=== PATIENT | female | born 1930 | race Hispanic/Latino ===

== ENCOUNTER 2016-11-26 06:11 | Inpatient (IN) | payer MEDICARE ==
[2016-11-26 06:16] VITALS: BMI 23.9
--- NOTE | 2016-11-26 06:35 | ED PDOC ---
Arrival/HPI - General Chief Complaint: Trauma Time Seen by Provider: 11/26/16 06:15 - History of Present Illness Narrative History of Present Illness (Text): 11/26/16 06:35 Patient presents via ambulance after waking at 4:00 to use the bathroom patient fell to the floor felt her legs were weak more the right than the left unable to get up probably some assistance by family 911 was called patient presents with no weakness no chest pain no shortness of breath history of CVA in the past with similar symptoms no headache fever or chills Past Medical History - Provider Review Nursing Documentation Reviewed: Yes - Infectious Disease Hx of Infectious Diseases: None - Cardiac Hx Hypertension: Yes - Neurological HX Cerebrovascular Accident: Yes (with L sided weakness) - Psychiatric Hx Substance Use: No - Surgical History Hx Cholecystectomy: Yes - Anesthesia Hx Anesthesia: Yes Hx Anesthesia Reactions: No Hx Malignant Hyperthermia: No Family/Social History - Physician Review Nursing Documentation Reviewed: Yes Family/Social History: No Known Family HX Smoking Status: Never Smoked Hx Alcohol Use: No Hx Substance Use: No Allergies/Home Meds Allergies/Adverse Reactions: Allergies No Known Allergies Allergy (Verified 11/26/16 06:16) Home Medications: Home Meds Medication Instructions Recorded Confirmed hydroCHLOROthiazide [Microzide] 12.5 mg PO DAILY 11/26/16 11/26/16 Review of Systems - Review of Systems Constitutional: Normal Eyes: Normal ENT: Normal Respiratory: Normal Cardiovascular: Normal Gastrointestinal: Normal Genitourinary Female: Normal Musculoskeletal: Normal Skin: Normal Neurological: Focal Weakness. absent: Facial Droop Endocrine: Normal Hemo/Lymphatic: Normal Psychiatric: Normal Physical Exam Vital Signs Reviewed: Yes Vital Signs Temp Pulse Resp BP Pulse Ox 11/26/16 16:12 70 19 134/54 L 99 11/26/16 15:04 65 18 127/51 L 98 11/26/16 12:32 97.7 F 83 83 H 129/54 L 11/26/16 10:10 83 17 129/54 L 99 11/26/16 09:48 80 18 126/48 L 97 11/26/16 07:49 75 18 104/57 L 98 11/26/16 07:02 72 18 166/61 H 97 11/26/16 06:12 97.7 F 74 18 154/68 H 96 Temperature: Afebrile Blood Pressure: Normal Pulse: Regular Respiratory Rate: Normal Appearance: Positive for: Well-Appearing, Non-Toxic, Comfortable Pain Distress: None Mental Status: Positive for: Alert and Oriented X 3 - Systems Exam Head: Present: Atraumatic, Normocephalic Pupils: Present: PERRL Extroacular Muscles: Present: EOMI Conjunctiva: Present: Normal Mouth: Present: Moist Mucous Membranes Neck: Present: Normal Range of Motion Respiratory/Chest: Present: Clear to Auscultation, Good Air Exchange. No: Respiratory Distress, Accessory Muscle Use Cardiovascular: Present: Regular Rate and Rhythm, Normal S1, S2. No: Murmurs Abdomen: Present: Normal Bowel Sounds. No: Tenderness, Distention, Peritoneal Signs Back: Present: Normal Inspection Upper Extremity: Present: Normal Inspection. No: Cyanosis, Edema Lower Extremity: Present: Normal Inspection. No: Edema Neurological: Present: GCS=15, CN II-XII Intact, Speech Normal, Motor Func Grossly Intact Skin: Present: Warm, Dry, Normal Color. No: Rashes Psychiatric: Present: Alert, Oriented x 3, Normal Insight, Normal Concentration Medical Decision Making - Lab Interpretations Lab Results: 11/26/16 06:30 11/26/16 06:30 Lab Results 11/26/16 06:40: Blood Type B NEGATIVE, Antibody Screen Negative, BBK History Checked No verified bt 11/26/16 06:33: POC Glucose (mg/dL) 127 H 11/26/16 06:30: WBC 11.6 H, RBC 3.55, Hgb 11.3 L, Hct 34.3 L, MCV 96.6, MCH 31.8 , MCHC 32.9, RDW 13.3, Plt Count 294, MPV 10.2, Gran % 71.4 H, Lymph % (Auto) 22.5, [place] % (Auto) 4.4, Eos % (Auto) 1.5, Baso % (Auto) 0.2, Gran # 8.26 H, Lymph # 2.6, Nelson # 0.5, Eos # 0.2, Baso # 0.02, PT 10.8, INR 1.00, APTT 25.7, Sodium 141, Potassium 3.8, Chloride 101, Carbon Dioxide 27, Anion Gap 17, BUN 28 H, Creatinine 1.0, Est GFR ( Amer) > 60, Est GFR (Non-Af Amer) 52, Random Glucose 114 H, Hemoglobin A1c 6.0, Calcium 9.6, Total Bilirubin 0.7, AST 26, ALT 19, Alkaline Phosphatase 77, Troponin I < 0.01, Total Protein 8.0, Albumin 3.9, Globulin 4.1, Albumin/Globulin Ratio 1.0 L, Triglycerides 145, Cholesterol 156, LDL Cholesterol Direct 73, HDL Cholesterol 43 - RAD Interpretation Radiology Orders: 11/26/16 06:24 HEAD W/O (CODE STROKE) [CT] Stat CHEST PORTABLE [RAD] Stat 11/26/16 10:47 BRAIN WITHOUT CONTRAST [MRI] Routine 11/28/16 17:10 SPINAL CANAL LUMBAR W/O CONT [MRI] Routine - Medication Orders Current Medication Orders: Acetaminophen (Tylenol 325mg Tab) 650 mg PO Q4H PRN PRN Reason: Pain, Mild (1-3) Aspirin (Ecotrin) 81 mg PO DAILY [facility] Last Admin: 11/29/16 09:30 Dose: 81 MG Atorvastatin Calcium (Lipitor) 10 mg PO DIN [facility] Last Admin: 11/29/16 17:35 Dose: 10 MG Discontinued Medications Aspirin (Ecotrin) 325 mg PO STAT STA Stop: 11/26/16 07:02 Last Admin: 11/26/16 07:06 Dose: 325 MG Atorvastatin Calcium (Lipitor) 40 mg PO STAT STA Stop: 11/26/16 07:28 Last Admin: 11/26/16 07:33 Dose: 40 MG - Transfer of Care Patient signed out to Dr:: abbey brewer and zachary NIHSS Scale([place])3 Time Performed: 06:15 - How Severe is the Stoke Baseline Level of Consciousness: 0=Alert LOC to Questions: 0=Both comments correct LOC to commands: 0=Obeys both correctly Best Gaze: 0=Normal Visual: 0=No visual loss Facial: 0=Normal Motor Arm - Left: 0=No drift Motor Arm - Right: 0=No drift Motor Leg - Left: 1=Drift before 5 sec Motor Leg - Right: 0=No drift Limb Ataxia: 0=Absent Sensory: 0=Normal Best Language: 0=No aphasia Dysarthia: 0=Normal articulation Extinction & Inattention (Neglect): 0=Normal, no object Score: 1 Risk Level: Minor Stroke Risk rTPA Inclusion/Exclusion - Refusal of Treatment Patient Refused Treatment: No - Inclusion Criteria for Altepase Patient is 18 years or Older: Yes The Clinical Diagnosis of Ischemic Stroke That is Causing a Potentially Disabling Neurological Deficit: No Time of Onset is Well Established to be Less Than 270 Minute Before Treatment Would Begin: Yes Risk/Benefit Discussed With Patient/Family Member Present: Yes - Exclusion Criteria for Altepase Uncontrolled Hypertension at Time of Treatment (Systolic BP above 185 or Diastolic BP above 110 mmHg): No Active Internal Bleeding: No Known Bleeding Diathesis Including but Not Limited to: Platelets Below 100,000/ mm,PTT Above 40 sec After Heparin Use, Current Use of Oral Anitcoagulant With INR Greater Than 1.7 or PT Greater Than 15 secs: No Evidence of an Intracranial Hemorrhage: No Evidence of Major Acute Infarct With Signs Greater Than 1/3 MCA Territory: No - Warning to TPA With Conditions Following Conditions Weighed Against Anticipated Benefit: Yes Condition: Stroke Serevity Too Mild Disposition/Present on Arrival - Present on Arrival Any Indicators Present on Arrival: No History of DVT/PE: No History of Uncontrolled Diabetes: No Urinary Catheter: No History of Decub. Ulcer: No History Surgical Site Infection Following: None - Disposition Have Diagnosis and Disposition been Completed?: Yes Diagnosis: TIA (transient ischemic attack) Disposition: HOSPITALIZED Disposition Time: 07:00 Patient Problems: Current Active Problems Problem Status Diagnosed TIA (transient ischemic attack) Acute Condition: STABLE
[2016-11-26 06:40] LABS: ADD MANUAL DIFF? NO
--- NOTE | 2016-11-26 06:51 | CT ---
EXAM: CT Head Without Intravenous Contrast. CLINICAL HISTORY: 86 years old, female; Signs and symptoms; Alteration of consciousness; Additional info: Code stroke TECHNIQUE: Axial computed tomography images of the head/brain without intravenous contrast. This CT exam was performed using one or more of the following dose reduction techniques: automated exposure control, adjustment of the mA and/or kV according to patient size, and/or use of iterative reconstruction technique. COMPARISON: No relevant prior studies available. FINDINGS: Brain: Yjzw-ge-pojfibft atrophy. No intracranial hemorrhage. No mass. Few scattered subtle foci of decreased attenuation within periventricular/subcortical white matter. No definite edema. Ventricles: No hydrocephalus. Bones/joints: No acute fracture. Soft tissues: Unremarkable. Vasculature: Minimal atherosclerotic disease of intracranial arteries. Sinuses: No acute sinusitis. Mastoid air cells: No mastoid effusion. Orbits: Unremarkable as visualized. IMPRESSION: 1. Nonspecific white matter changes. Acute infarction may be CT occult within first 24 hours. If a focal deficit persists, consider followup CT or MRI for further evaluation. 2. Incidental/non-acute findings are described above.
[2016-11-26 07:00] LABS: BASO # 0.02 K/mm3 (0.0-2.0); BASO % 0.2 % (0.0-3.0); EOS # 0.2 (0.0-0.7); EOS % 1.5 % (1.5-5.0); GRAN # 8.26 (1.4-6.5); GRAN % 71.4 % (50.0-68.0); HEMATOCRIT 34.3 % (36.0-48.0); LYMPH # 2.6 (1.2-3.4); LYMPH % 22.5 % (22.0-35.0); MEAN CELL VOLUME 96.6 fL (80.0-105.0); MEAN CORPUSCULAR HEMOGLOBIN 31.8 pg (25.0-35.0); MEAN CORPUSCULAR HGB CONC 32.9 g/dl (31.0-37.0); MEAN PLATELET VOLUME 10.2 fl (7.0-11.0); MONO # 0.5 (0.1-0.6); MONO % 4.4 % (1.0-6.0); PLATELET COUNT 294 10^3/uL (120.0-450.0); RED CELL DISTRIBUTION WIDTH 13.3 % (11.5-14.5); WHITE BLOOD COUNT 11.6 10^3/ul (4.5-11.0)
[2016-11-26] MEDS ORDERED: Aspirin 325 mg EC Tablets PO STA (07:01)
[2016-11-26 07:06] LABS: ALKALINE PHOSPHATASE 77 U/L (38-133); ALT/SGPT 19 U/L (7-56); AST/SGOT 26 U/L (15-39); BILIRUBIN,TOTAL 0.7 mg/dL (0.2-1.3); BLOOD UREA NITROGEN 28 mg/dL (7-21); CALCIUM 9.6 mg/dL (8.4-10.5); CARBON DIOXIDE 27 mmol/L (21-33); CHLORIDE 101 mmol/L (98-107); CHOLESTEROL 156 mg/dL (130-200); GFR AFRICAN-AMERICAN > 60; GLUCOSE,RANDOM 114 mg/dL (70-110); POTASSIUM 3.8 mmol/L (3.6-5.0); SODIUM 141 mmol/L (132-148)
[2016-11-26 07:17] LABS: PARTIAL THROMBOPLASTIN TIME 25.7 Seconds (23.7-30.8)
[2016-11-26 07:18] LABS: TROPONIN I < 0.01 ng/mL
--- NOTE | 2016-11-26 07:19 | ED PDOC ---
Physical Exam Vital Signs Reviewed: Yes Vital Signs Temp Pulse Resp BP Pulse Ox 11/26/16 07:49 75 18 104/57 L 98 11/26/16 07:02 72 18 166/61 H 97 11/26/16 06:12 97.7 F 74 18 154/68 H 96 Temperature: Afebrile Blood Pressure: Hypertensive Pulse: Regular Respiratory Rate: Normal Appearance: Positive for: Well-Appearing Pain Distress: None Mental Status: Positive for: Alert and Oriented X 3 Finger Stick Blood Glucose: 127 Medical Decision Making ED Course and Treatment: 11/26/16 07:00 Patient signed out to me by Dr. Lubin pending reassessment and final disposition. 86 year old female presented with generalized weakness. Patient woke up with these symptoms which since resolved. No focal neurological deficits on exam. Patient denies any complaints at this time. 11/26/16 07:[address] Gregor Hess who agrees with remote tele observation. - Lab Interpretations Lab Results: 11/26/16 06:30 11/26/16 06:30 Lab Results 11/26/16 06:40: Blood Type B NEGATIVE, Antibody Screen Negative, BBK History Checked No verified bt 11/26/16 06:30: WBC 11.6 H, RBC 3.55, Hgb 11.3 L, Hct 34.3 L, MCV 96.6, MCH 31.8 , MCHC 32.9, RDW 13.3, Plt Count 294, MPV 10.2, Gran % 71.4 H, Lymph % (Auto) 22.5, [place] % (Auto) 4.4, Eos % (Auto) 1.5, Baso % (Auto) 0.2, Gran # 8.26 H, Lymph # 2.6, [place] # 0.5, Eos # 0.2, Baso # 0.02, PT 10.8, INR 1.00, APTT 25.7, Sodium 141, Potassium 3.8, Chloride 101, Carbon Dioxide 27, Anion Gap 17, BUN 28 H, Creatinine 1.0, Est GFR ( Amer) > 60, Est GFR (Non-Af Amer) 52, Random Glucose 114 H, Calcium 9.6, Total Bilirubin 0.7, AST 26, ALT 19, Alkaline Phosphatase 77, Troponin I < 0.01, Total Protein 8.0, Albumin 3.9, Globulin 4.1, Albumin/Globulin Ratio 1.0 L, Triglycerides 145, Cholesterol 156, LDL Cholesterol Direct 73, HDL Cholesterol 43 - RAD Interpretation Radiology Orders: 11/26/16 06:24 HEAD W/O (CODE STROKE) [CT] Stat CHEST PORTABLE [RAD] Stat - Medication Orders Current Medication Orders: Discontinued Medications Aspirin (Ecotrin) 325 mg PO STAT STA Stop: 11/26/16 07:02 Last Admin: 11/26/16 07:06 Dose: 325 MG Atorvastatin Calcium (Lipitor) 40 mg PO STAT STA Stop: 11/26/16 07:28 Last Admin: 11/26/16 07:33 Dose: 40 MG - Eulaibe Statement The provider has reviewed the documentation as recorded by the Haroldo Monte Provider Eulaibe Attestation: All medical record entries made by the Haroldo were at my direction and personally dictated by me. I have reviewed the chart and agree that the record accurately reflects my personal performance of the history, physical exam, medical decision making, and the department course for this patient. I have also personally directed, reviewed, and agree with the discharge instructions and disposition. Disposition/Present on Arrival - Present on Arrival Any Indicators Present on Arrival: No History of DVT/PE: No History of Uncontrolled Diabetes: No Urinary Catheter: No History of Decub. Ulcer: No History Surgical Site Infection Following: None - Disposition Have Diagnosis and Disposition been Completed?: Yes Diagnosis: TIA (transient ischemic attack) Disposition: HOSPITALIZED Disposition Time: 07:56 Patient Plan: Observation Condition: STABLE
--- NOTE | 2016-11-26 09:53 | RAD ---
HISTORY: cva COMPARISON: No prior. FINDINGS: LUNGS: No active pulmonary disease. PLEURA: No significant pleural effusion identified, no pneumothorax apparent. CARDIOVASCULAR: Normal. OSSEOUS STRUCTURES: No significant abnormalities. VISUALIZED UPPER ABDOMEN: Normal. OTHER FINDINGS: None. IMPRESSION: No active disease.
--- NOTE | 2016-11-26 12:44 | CON ---
DATE: 11/26/2016 CHIEF COMPLAINT: Generalized weakness, with residual left-sided weakness from prior stroke. HISTORY OF PRESENT ILLNESS: This is an 86-year-old woman with past medical history of CVA in the [facility] t with left side weakness on the left lower extremity. She was walking to the bathroom in the [facility] and when she came back from the bathroom she says her legs buckled and she fell to the floor and un able to get up; therefore, came to the hospital for evaluation. She denied any numbness or any pain in the extremities. Denies any headache, any change in sense of vision, taste or smell. No pronator drift seen except for residual weakness on the left side from her stroke. She said that her left lo wer extremity weakness is more weaker than before. She does not take an aspirin at home and she does not take her medications regularly. CT scan showed no acute intracranial abnormality. PAST MEDICAL HISTORY: Hypertension, history of CVA in the past with residual left side weakness, his tory of cholecystectomy. FAMILY HISTORY: Noncontributory. SOCIAL HISTORY: No illicit drug use. No ETOH abuse. ALLERGIES: No known drug allergies. REVIEW OF SYSTEMS: A 14-point review of systems is negative except for the HPI. PHYSICAL EXAMINATION: VITAL SIGNS: Temperature 97.7, pulse rate ____, blood pressure 129/____, respiratory rate of 17, oxy gen saturation 99% on room air. GENERAL: The patient is sitting up in bed in no acute distress. HEENT: Atraumatic, normocephalic. PERRLA. Extraocular muscles intact. NECK: Supple. No JVD. No adenopathy noted. LUNGS: Clear to auscultation. No adventitious sounds. HEART: S1, S2, normal rate and rhythm. No murmurs, rubs, or gallops. ABDOMEN: Soft. Nontender, nondistended. Bowel sounds are present. EXTREMITIES: No clubbing, no cyanosis. Peripheral pulses ____ bilaterally. NEUROLOGIC: The patient is alert, oriented to person, place, month and year. Speech is fluent, with out any errors. Cranial nerves II-XII are intact. MOTOR: Has residual left side weakness from prior CVA, though has 4+/5 in the left lower extremity, right side is 5/5. Toes ____. SENSORY: Light touch ____ at the ankles. COORDINATION: Fwqjio-qi-hyhc intact. ____ LABORATORY DATA: Sodium is 141, potassium ____, carbon dioxide 27, BUN 28, creatinine ____. LDL is 7 3 ____. ASSESSMENT AND PLAN: This is an 86-year-old woman with history of cerebrovascular accident in the [facility] with residual left side weakness, hypertension, ____ after walking back from the bathroom had gene ralized weakness and both legs gave out ____ left lower extremity is a lot weaker than before and no back pain, no radicular symptoms ____ left side weakness from prior cerebrovascular accident and, acc ording to her, the left leg is weaker than before. She does not take aspirin daily. At this time, h er symptoms could be secondary to generalized weakness, secondary to arthritis ____ transient cerebra l hypoperfusion versus an acute infarct. Will Recommend: 1. An MRI of the brain to assess for acute infarct. 2. Will be started on aspirin 81 mg p.o. daily and Lipitor 20 mg p.o. daily ____. 3. Recommend ____ . 4. Monitor electrolytes and recommend for her to hydrate. Continue current present medical manageme nt. Thank you for this consult. Rick Davidson MD cc: [id number] TT: 11/26/2016 11:29:14 Confirmation # [id number] Dictation # [id number] nevin
[2016-11-26] MEDS ORDERED: Influenza Vaccine 45 MCG/0.5 ml IM ONE (12:53)
[2016-11-26] MEDS ORDERED: Pneumococcal 23-Valent Vaccine IM ONE (12:53)
--- NOTE | 2016-11-26 14:24 | MRI ---
PROCEDURE: MRI BRAIN WITHOUT CONTRAST HISTORY: cva COMPARISON: Comparison is made to the previous study dated 04/17/[address] head dated 11/26/2016 TECHNIQUE: Multiplanar, multisequence MR images of the brain were obtained without intravenous contrast enhancement. FINDINGS: HEMORRHAGE: None DWI: No evidence of an acute or early subacute infarction. BRAIN PARENCHYMA: No mass effect or edema. Again seen are few scattered nonspecific small foci of hyperintense T2 and FLAIR signal in the white matter suggestive but nonspecific for chronic microvascular ischemic disease. VENTRICLES: Unremarkable. No hydrocephalus. CRANIUM: Unremarkable. ORBITS: Grossly unremarkable. PARANASAL SINUSES/MASTOIDS: Clear VASCULAR SYSTEM: Skull base flow voids intact. OTHER FINDINGS: None. IMPRESSION: No evidence of acute infarct or acute intracranial pathology. Re- demonstration of small foci of hyperintense FLAIR signal in the white matter suggestive but nonspecific for chronic microvascular ischemic disease.
--- NOTE | 2016-11-26 18:30 | CARD ---
APPROVED REPORT EKG Measurement Heart [id number] <Conclusion> Normal sinus rhythm ST abnormality, possible digitalis effect Abnormal ECG
--- NOTE | 2016-11-27 10:36 | HP ---
CHIEF COMPLAINT: Unable to move legs. HISTORY OF PRESENT ILLNESS: This is an 86-year-old woman who lives at home with a close friend and r oommate. She went to the bathroom early on morning and fell on the floor. She was not able to get. She was not able to move her legs. She describes her legs as having been paralyzed. They were not twisted or caught. She simply could not move them. She had pain. She had some pain in her back, but she was awake, alert and clear. She was able to call for help. She says she was able to speak and talk clearly and move her upper extremities. It was only her lower legs that she could not move. Ambulance was called. She came to the Emergency Room. By that time, she was moving her lowe r extremities. She says her left leg is still very weak. CT scan of the head was done. Neurology w as called and arrangements were made for her to be admitted. 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 She was followed by ne urologists, Drs. Mcclure and Lety, at that time. She was seen recently in the office after a 2-yea r absence and was started on hydrochlorothiazide for mildly noted hypertension. ALLERGIES: None. SOCIAL HISTORY: Tobacco none, alcohol none, coffee 2 cups a day. FAMILY HISTORY: Mother at age 85. Father at age 72 of a myocardial infarction. She is #3 of 4 sibs. She has 3 brothers. One passed during World War II. The other at age 78. The ot her is alive and well. She is single with no children. PHYSICAL EXAMINATION: GENERAL: The patient was seen in room 267, bed 1. She is awake, alert, clear, and in good spirits. She is feeling much better. HEAD AND NECK: Unremarkable. Conjunctivae are pink. Mucous membranes are moist. Neck is supple wi thout masses. HEART: Regular, not tachycardic. ABDOMEN: Soft, nontender. LUNGS: Clear. MENTAL STATUS: She is awake, alert and clear and sharp. NEUROLOGIC: Upper extremity strength is good. There is no weakness. There is no hand weakness. Mcmillan nd grasps are normal. There is no drift. She has normal rotation. Lower extremities: Difficult to evaluate. She is able to articulate both right and left ankle, but there is weakness in the left le g trying to raise her leg up off the bed. Ambulation has not been attempted yet by physical therapy, but the patient feels she would not be able to walk and would be very unsteady at this point. LABORATORY DATA: Review of labs shows H and H to be 11 and 34. White count is slightly elevated at 11.6. Coags are normal. Chemistries are okay except that she is slightly dry with a BUN of 28. Ran dom nonfasting glucose of 114. Cholesterol was quite good at 156 with an HDL of 43. MRI of the brai n was done this morning. The CT scan was essentially unremarkable, but MRI was done showing no evide nce of acute infarct or acute intracranial pathology. Neurology note is appreciated. I may need to speak with the neurologist about the patient's specific symptoms in the lower extremities. I will order an MRI of the lumbar spine to look for a cord lesio n or involvement in the weakness I will need to review the history with the patient again, specifica lly in how she speaks so clearly with her legs being able to move and paralysis. IMPRESSION: 1. Fall at home with patient reported inability to move her legs. Cerebrovascular accident has alre antonio been ruled out. May suspect transient ischemic attack versus lumbar cord lesion or issue. MRI o f the lumbar spine is pending. 2. Status post temporal arteritis 3-4 years ago treated with prolonged course of steroids. 3. Hypertension. PLAN: Admit to med/surg monitored floor. Follow with neurology. MRI as ordered above. Follow bloo d pressure. Try to resume prior medications. Venkata Hess MD cc: [phone] TT: 11/27/2016 10:35:31 [email or web address]
--- NOTE | 2016-11-28 13:12 | MRI ---
PROCEDURE: MR LUMBAR SPINE WITHOUT CONTRAST HISTORY: left leg weakness COMPARISON: 02/19/2015 TECHNIQUE: Multiecho multiplanar sequences were performed through the lumbar spine without the use of intravenous contrast. FINDINGS: Normal lumbar lordosis. Vertebral body heights are preserved. Marrow signal unremarkable. Conus medullaris unremarkable at the level of T12/L1 Paraspinal soft tissues are unremarkable. T12-L1: No disc herniation, spinal canal stenosis or neural foraminal narrowing. L1-2: No disc herniation, spinal canal stenosis or neural foraminal narrowing. L2-3: No disc herniation, spinal canal stenosis or neural foraminal narrowing. L3-4: No disc herniation, spinal canal stenosis or neural foraminal narrowing. L4-5: Disc bulge with facet arthropathy contribute to mild central canal stenosis. L5-S1: Broad-based disc herniation with bilateral inferior foraminal encroachment. Associated disc desiccation. OTHER FINDINGS: None. IMPRESSION: No significant interval change. L4-5: Disc bulge with facet arthropathy contribute to mild central canal stenosis. L5-S1: Broad-based disc herniation with bilateral inferior foraminal encroachment.
--- NOTE | 2016-11-28 18:41 | PN ---
DATE: 11/28/2016 CHIEF COMPLAINT: Follow up for generalized weakness, has residual left-sided weakness from prior CVA . SUBJECTIVE: The patient seen and examined at bedside. MRI of the lumbosacral spine, since she has le ft leg weakness, showed L5 disk bulge and mild central canal stenosis and L5-S1 broad based disk tasneem iation with bilateral inferior foraminal encroachment, but should not be causing that much of left lo wer extremity weakness. MRI of her brain showed no acute intracranial abnormality. She is currently on aspirin and statin for stroke prevention. No acute events overnight. 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 PAST SURGICAL HISTORY: Cholecystectomy. FAMILY HISTORY: Noncontributory. SOCIAL HISTORY: No illicit drug use, smoking, or ETOH abuse. ALLERGIES: No known drug allergies. REVIEW OF SYSTEMS: A 14-point review of systems is negative except for the HPI. PHYSICAL EXAMINATION: VITAL SIGNS: Temperature 98.5, pulse rate 69, blood pressure 142/47, respiratory rate 20, oxygen 98% on room air. GENERAL: The patient is sitting up in bed in no acute distress. HEENT: Atraumatic, normocephalic. PERRLA. Extraocular muscles intact. NECK: Supple, no JVD, no adenopathy noted. LUNGS: Clear to auscultation. No adventitious sounds. HEART: S1, S2, normal rate and rhythm. No murmurs, rubs, or gallops. ABDOMEN: Soft, nontender, nondistended. Bowel sounds are present. EXTREMITIES: No clubbing, no cyanosis. Peripheral pulses 2+ felt bilaterally. NEUROLOGIC: The patient is alert, oriented to person, place, month and year. Speech is fluent, with out any errors. Cranial nerves II through XII are intact. Has poor attention span, slow thought pro cess. MOTOR: Has residual left side weakness from prior CVA, though she has 4+/5 left lower extremity and right side is 5/5 intact. Toes are downgoing bilaterally. SENSORY: Light touch, pinprick, proprioception, vibration is intact. DTRs 2+ throughout. COORDINATION: Lectat-ns-iiyb intact. LABORATORY DATA: Blood sugar is 127. ASSESSMENT AND PLAN: This is an 86-year-old woman with history of cerebrovascular accident in the [facility] with residual left side weakness, hypertension, was not taking any aspirin at home, after walking back from the bathroom, she had generalized weakness and both legs gave out and left lower extremity is a lot weaker than her baseline. She denied any radicular symptoms or any back pain, but her MRI o f the lumbosacral spine showed an L5-S1 broad based disk herniation with bilateral inferior foraminal encroachment, unlikely to be causing that much of left lower extremity weakness, but otherwise overa ll doing well. She was not taking an aspirin prior. Her MRI of the brain showed no acute intracrania l abnormalities. At this time, her generalized weakness could be secondary to transient cerebral hyp operfusion with superimposed underlying deconditioned state and chronic L5-S1 broad based disk hernia tion. At this time, recommend: 1. Aspirin 81 mg, Lipitor 10 mg p.o. daily for stroke prevention. 2. Physical and occupational therapy evaluation. Continue current present medical management. Thank you for this followup. Rick Davidson MD cc: [id number] TT: 11/28/2016 18:40:37 Confirmation # [id number] Dictation # [id number] nevin
[2016-11-30 10:56] LABS: HEMATOCRIT 34.9 % (36.0-48.0); MEAN CELL VOLUME 97.8 fL (80.0-105.0); MEAN CORPUSCULAR HEMOGLOBIN 30.8 pg (25.0-35.0); MEAN CORPUSCULAR HGB CONC 31.5 g/dl (31.0-37.0); MEAN PLATELET VOLUME 10.3 fl (7.0-11.0); RED CELL DISTRIBUTION WIDTH 13.1 % (11.5-14.5); WHITE BLOOD COUNT 8.1 10^3/ul (4.5-11.0)
[2016-11-30 10:59] LABS: ALKALINE PHOSPHATASE 69 U/L (38-133); ALT/SGPT 30 U/L (7-56); AST/SGOT 25 U/L (15-39); BILIRUBIN,TOTAL 0.6 mg/dL (0.2-1.3); BLOOD UREA NITROGEN 21 mg/dL (7-21); CALCIUM 9.4 mg/dL (8.4-10.5); CARBON DIOXIDE 29 mmol/L (21-33); CHLORIDE 101 mmol/L (95-110); GFR AFRICAN-AMERICAN > 60; GLUCOSE,RANDOM 157 mg/dL (70-110); POTASSIUM 4.6 mmol/L (3.6-5.0); SODIUM 141 mmol/L (132-148); TOTAL PROTEIN 7.3 g/dL (5.8-8.3)
[2016-11-30 18:43] VITALS: O2SAT 96
[2016-12-01 07:58] VITALS: BP 115/38; PULSE 57; RESP 18; TEMP 98.9
== END 2016-12-01 16:02 | DRG 552 ==
LOC: ED 06:11 → ERH 08:04 → 2RNO 17:34 → 3RNO 11-27 13:50 → OBSVTOIN 11-27 15:41
PROVIDERS: ADMIT Internal Medicine; ATTEND Internal Medicine
DX: M51.27 Other intervertebral disc displacement, lumbosacral region (principal); I69.354 Hemiplegia and hemiparesis following cerebral infarction affecting left non-dominant side; W18.30XA Fall on same level, unspecified, initial encounter; I10 Essential (primary) hypertension; M48.06 Spinal stenosis, lumbar region; Y92.009 Unspecified place in unspecified non-institutional (private) residence as the place of occurrence of the external cause; Z82.49 Family history of ischemic heart disease and other diseases of the circulatory system; Z90.49 Acquired absence of other specified parts of digestive tract; R40.2412 Glasgow coma scale score 13-15, at arrival to emergency department; Z87.898 Personal history of other specified conditions; M19.90 Unspecified osteoarthritis, unspecified site; R53.1 Weakness; R53.81 Other malaise

== ENCOUNTER 2017-09-13 11:23 | Inpatient (IN) | payer MEDICARE ==
[2017-09-13 11:51] VITALS: BMI 25.0
--- NOTE | 2017-09-13 12:09 | ED PDOC ---
Arrival/HPI - General Chief Complaint: Lower Extremity Problem/Injury Time Seen by Provider: 09/13/17 11:45 Historian: Patient - History of Present Illness Narrative History of Present Illness (Text): 09/13/17 12:02 An 87 year old female, whose past medical history includes TIA, presents to the emergency department complaining of left leg weakness s/p a fall. The patient states that she got up to use the bathroom and fell. The patient is unclear in regards to the time of her fall, not recalling if it was 2AM yesterday or 2AM today. 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 The patient denies pain to the left leg. The patient denies fevers, chills, LOC, head injury, headache, dizziness, chest pain, shortness of breath, dyspnea on exertion, cough, abdominal pain, nausea, vomiting, diarrhea, back pain, neck pain, urinary/bowel changes, or any other complaint. PMD: Dr. Hess Time/Duration: Other (2 Days) Symptom Onset: Sudden Symptom Course: Unchanged Activities at Onset: Rest, Light Context: Home Past Medical History - Provider Review Nursing Documentation Reviewed: Yes - Infectious Disease Hx of Infectious Diseases: None - Cardiac Hx Hypertension: Yes - Neurological HX Cerebrovascular Accident: Yes (with L sided weakness) - HEENT Hx HEENT Disorder: Yes (eyeglasses) - Musculoskeletal/Rheumatological Hx Falls: No (fell today couldn't move legs) Hx Fractures: Yes (L ankle 1957 fell on ice, cast x1 yr) Hx Unsteady Gait: Yes (cane) - Psychiatric Hx Substance Use: No - Surgical History Hx Cholecystectomy: Yes - Anesthesia Hx Anesthesia: Yes Hx Anesthesia Reactions: No Hx Malignant Hyperthermia: No Family/Social History - Physician Review Nursing Documentation Reviewed: Yes Family/Social History: No Known Family HX Smoking Status: Never Smoked Hx Alcohol Use: No Hx Substance Use: No Allergies/Home Meds Allergies/Adverse Reactions: Allergies No Known Allergies Allergy (Verified 11/26/16 06:16) Review of Systems - Physician Review All systems were reviewed & negative as marked: Yes - Review of Systems Constitutional: absent: Fevers, Night Sweats Respiratory: absent: SOB, Cough Cardiovascular: absent: Chest Pain, FREGOSO Gastrointestinal: absent: Abdominal Pain, Stool Changes, Diarrhea, Nausea, Vomiting Genitourinary Female: absent: Urine Output Changes Musculoskeletal: Other (Left lower extremity weakness. ). absent: Back Pain, Neck Pain Neurological: absent: Headache, Dizziness Physical Exam Vital Signs Reviewed: Yes Vital Signs Temp Pulse Resp BP Pulse Ox 09/13/17 12:54 67 18 134/58 L 99 09/13/17 11:48 98.2 F 69 18 136/49 L 99 Temperature: Afebrile Blood Pressure: Hypotensive Pulse: Regular Respiratory Rate: Normal Appearance: Positive for: Well-Appearing, Non-Toxic, Comfortable Pain Distress: None Mental Status: Positive for: Alert and Oriented X 3 - Systems Exam Head: Present: Atraumatic, Normocephalic Pupils: Present: PERRL Extroacular Muscles: Present: EOMI Conjunctiva: Present: Normal Mouth: Present: Moist Mucous Membranes Neck: Present: Normal Range of Motion Respiratory/Chest: Present: Clear to Auscultation, Good Air Exchange. No: Respiratory Distress, Accessory Muscle Use Cardiovascular: Present: Regular Rate and Rhythm, Normal S1, S2. No: Murmurs Abdomen: Present: Normal Bowel Sounds. No: Tenderness, Distention, Peritoneal Signs Back: Present: Normal Inspection Upper Extremity: Present: Normal Inspection. No: Cyanosis, Edema Lower Extremity: Present: Other (Neurologically isolated left leg weakness. Able to minimally lift left leg off of stretcher for no more than 2 seconds. ) Neurological: Present: GCS=15, CN II-XII Intact, Speech Normal Skin: Present: Warm, Dry, Normal Color. No: Rashes Psychiatric: Present: Alert, Oriented x 3, Normal Insight, Normal Concentration Medical Decision Making ED Course and Treatment: 09/13/17 12:15 Impression: An 87 year old female, presents to the emergency department complaining of left lower extremity weakness for at least 24 hours. Plan: -- Head CT -- Chest X-ray -- Labs -- Reassess and disposition Prior Visits: Notes and results from previous visits were reviewed. Patient was last seen in the emergency department on 11/26/2016. The patient was seen in the emergency department s/p a fall and lower extremity weakness. The patient was hospitalized. Progress Notes: CT HEAD WITHOUT CONTRAST Dictator : Marco Antonio Ceron MD Report Date : 09/13/2017 12:58:06 IMPRESSION: No acute findings CHEST X-RAY Dictator : Marco Antonio Ceron MD Report Date : 09/13/2017 13:11:38 IMPRESSION: No active disease. - Lab Interpretations Lab Results: 09/13/17 13:00 09/13/17 13:00 Lab Results 09/13/17 13:00: Sodium 142, Potassium 4.7, Chloride 105, Carbon Dioxide 27, Anion Gap 15, BUN 31 H, Creatinine 1.0, Est GFR ( Amer) > 60, Est GFR ( Non-Af Amer) 52, Random Glucose 104, Calcium 9.7, Total Bilirubin 0.6, AST 51 H , ALT 43, Alkaline Phosphatase 87, Total Protein 8.2, Albumin 3.9, Globulin 4.3 , Albumin/Globulin Ratio 0.9 L 09/13/17 13:00: PT 12.8 H, INR 1.11 H, APTT 29.7 09/13/17 13:00: WBC 12.7 H D, RBC 3.94, Hgb 11.8 L, Hct 37.2, MCV 94.4, MCH 29.9 , MCHC 31.7, RDW 14.3, Plt Count 333, MPV 10.4, Gran % 72.3 H, Lymph % (Auto) 22.6, [place] % (Auto) 4.3, Eos % (Auto) 0.6 L, Baso % (Auto) 0.2, Gran # 9.16 H, Lymph # 2.9, [place] # 0.6, Eos # 0.1, Baso # 0.02 I have reviewed the lab results: Yes - RAD Interpretation Radiology Orders: 09/13/17 12:04 CHEST PORTABLE [RAD] Stat 09/13/17 12:05 HEAD W/O CONTRAST [CT] Stat NIHSS Scale ([place]) Time Performed: 12:16 - How Severe is the Stoke 24 hours post onset S/S Level of Consciousness: 0=Alert LOC to Questions: 0=Both comments correct LOC to commands: 0=Obeys both correctly Best Gaze: 0=Normal Visual: 0=No visual loss Facial: 0=Normal Motor Arm - Left: 0=No drift Motor Arm - Right: 2=Falls before 10 sec Motor Leg - Right: 0=No drift Limb Ataxia: 0=Absent Sensory: 0=Normal Best Language: 0=No aphasia Dysarthia: 0=Normal articulation Extinction & Inattention (Neglect): 0=Normal, no object - Notes Notes: No other neurological deficits. Symptoms started at lest 24 hours ago. Appears patient suffered a recent stroke. - Scribe Statement The provider has reviewed the documentation as recorded by the Scribe Anahi Hernandez Provider Scribe Attestation: All medical record entries made by the Scribe were at my direction and personally dictated by me. I have reviewed the chart and agree that the record accurately reflects my personal performance of the history, physical exam, medical decision making, and the department course for this patient. I have also personally directed, reviewed, and agree with the discharge instructions and disposition. Disposition/Present on Arrival - Present on Arrival Any Indicators Present on Arrival: No History of DVT/PE: No History of Uncontrolled Diabetes: No Urinary Catheter: No History of Decub. Ulcer: No History Surgical Site Infection Following: None - Disposition Have Diagnosis and Disposition been Completed?: Yes Diagnosis: CVA (cerebral vascular accident) Disposition: HOSPITALIZED Disposition Time: 14:45 Patient Plan: Admission Condition: STABLE Referrals: Venkata Hess MD [Primary Care Provider] - Follow up with primary Forms: [employer] ([place])
--- NOTE | 2017-09-13 12:59 | CT ---
PROCEDURE: CT HEAD WITHOUT CONTRAST. HISTORY: right leg weakness COMPARISON: 11/26/2016 TECHNIQUE: Axial computed tomography images were obtained through the head/brain without intravenous contrast. Radiation dose: Total exam DLP = 861 mGy-cm. This CT exam was performed using one or more of the following dose reduction techniques: Automated exposure control, adjustment of the mA and/or kV according to patient size, and/or use of iterative reconstruction technique. FINDINGS: HEMORRHAGE: No intracranial hemorrhage. BRAIN: No mass effect or edema. No atrophy or chronic microvascular ischemic changes. VENTRICLES: Unremarkable. No hydrocephalus. CALVARIUM: Unremarkable. PARANASAL SINUSES: Unremarkable as visualized. No significant inflammatory changes. MASTOID AIR CELLS: Unremarkable as visualized. No inflammatory changes. OTHER FINDINGS: None. IMPRESSION: No acute findings
[2017-09-13 13:12] LABS: BASO # 0.02 [, K/mm3] (0.0-2.0); BASO % 0.2 % (0.0-3.0); EOS # 0.1 (0.0-0.7); EOS % 0.6 % (1.5-5.0); GRAN # 9.16 (1.4-6.5); GRAN % 72.3 % (50.0-68.0); HEMOGLOBIN 11.8 g/dL (12.0-16.0); LYMPH # 2.9 (1.2-3.4); LYMPH % 22.6 % (22.0-35.0); MEAN CELL VOLUME 94.4 fl (80.0-105.0); MEAN CORPUSCULAR HEMOGLOBIN 29.9 pg (25.0-35.0); MEAN CORPUSCULAR HGB CONC 31.7 g/dl (31.0-37.0); MEAN PLATELET VOLUME 10.4 fl (7.0-11.0); MONO # 0.6 (0.1-0.6); MONO % 4.3 % (1.0-6.0); RBC 3.94 [, 10^6/uL] (3.5-6.1); RED CELL DISTRIBUTION WIDTH 14.3 % (11.5-14.5); WHITE BLOOD COUNT 12.7 [, 10^3/ul] (4.5-11.0)
--- NOTE | 2017-09-13 13:13 | RAD ---
HISTORY: stroke COMPARISON: 11/26/2016 FINDINGS: LUNGS: No active pulmonary disease. PLEURA: No significant pleural effusion identified, no pneumothorax apparent. CARDIOVASCULAR: Normal. OSSEOUS STRUCTURES: No significant abnormalities. VISUALIZED UPPER ABDOMEN: Normal. OTHER FINDINGS: None. IMPRESSION: No active disease.
[2017-09-13 13:19] LABS: ALB/GLOB RATIO 0.9 (1.1-1.8); ALBUMIN 3.9 g/dL (3.0-4.8); ALT/SGPT 43 U/L (7-56); AST/SGOT 51 U/L (14-36); BLOOD UREA NITROGEN 31 mg/dL (7-21); CALCIUM 9.7 mg/dL (8.4-10.5); GFR AFRICAN-AMERICAN > 60; GFR NON-AFRICAN AMERICAN 52; INR 1.11 (0.93-1.08); PARTIAL THROMBOPLASTIN TIME 29.7 Seconds (25.1-36.5); PROTHROMBIN TIME 12.8 SECONDS (9.4-12.5)
--- NOTE | 2017-09-13 19:34 | MRI ---
EXAM: MR Lumbar Spine Without Intravenous Contrast EXAM DATE/TIME: 09/13/2017 5:24 PM CLINICAL HISTORY: The patient age is 87 years old and is female; Signs and symptoms; Weakness; Patient HX: Left leg weakness. Trouble walking. Facility exam id and description: Mri spls spinal canal lumbar w/o cont TECHNIQUE: Magnetic resonance images of the lumbar spine without intravenous contrast in multiple planes. COMPARISON: MR - SPINAL CANAL LUMBAR W/O CONT 2016-11-28 11:35 FINDINGS: Vertebrae: The lumbar vertebral bodies are normal in height, without abnormal subluxation. Endplate irregularity and Modic endplate changes are visualized from L3-4 through L5-S1. Mild Modic endplate changes are also visualized at L1-2 and L2-3. Spinal cord: The distal end of the conus medullaris ends at L1, normal in position. Reproductive: T2 hypointense uterine masses are identified, consistent with fibroids. These findings are incompletely evaluated. DISCS/SPINAL CANAL/NEURAL FORAMINA: L1-L2: There is no significant narrowing of the thecal sac or neural foramina. L2-L3: There is no significant narrowing of the thecal sac or neural foramina. L3-L4: There is no significant area of the thecal sac. Mild left neural foraminal narrowing is identified. There is mild disc bulging. Hypertrophy of ligament flavum is visualized. L4-L5: There is a broad-based disc bulge with minimal stable narrowing of the thecal sac. There is bilateral facet arthropathy with hypertrophy ligamentum flavum. Narrowing of lateral recess is identified. Mild bilateral neural foraminal narrowing is identified. L5-S1: There is a decrease of disc height at L5-S1. There is bilateral facet arthropathy. A broad-based central left-sided disc protrusion is visualized, without significant narrowing of the thecal sac. This protrusion has decreased in size. There is narrowing of both lateral recesses, left side greater than right. Moderate right and mild left neural foramina is identified. Other findings: Degenerative disc disease is noted at multiple lumbar and visualized lower thoracic levels, with a decrease in the T2 signal intensity of the discs as well as disc bulge/osteophyte complexes. IMPRESSION: 1. Degenerative changes are noted at multiple lumbar and visualized lower thoracic levels, as described above. 2. At L5-S1, a broad-based central left-sided disc protrusion is visualized, without significant narrowing of the thecal sac. This protrusion has decreased in size. 3. At L4-5, there is a broad-based disc bulge with minimal stable narrowing of the thecal sac. 4. Neural foraminal narrowing is identified from L3-4 through L5-S1, as detailed above. 5. T2 hypointense uterine masses are identified, consistent with fibroids. These findings are incompletely evaluated. Follow-up ultrasonography is recommended.
--- NOTE | 2017-09-13 20:03 | MRI ---
EXAM: MR Thoracic Spine Without Intravenous Contrast EXAM DATE/TIME: 09/13/2017 5:24 PM CLINICAL HISTORY: The patient age is 87 years old and is female; Signs and symptoms; Weakness; Patient HX: Left leg weakness. Trouble walking. ; Additional info: [facility] weakness Facility exam id and description: Mri spts spinal canal thoracic w/o cont TECHNIQUE: Magnetic resonance images of the thoracic spine without intravenous contrast in multiple planes. COMPARISON: No relevant prior studies available. FINDINGS: Vertebrae: There is increased kyphosis of the thoracic spine. The thoracic vertebral bodies are normal in height, without abnormal subluxation or compression fracture. Marrow: Scattered T1 hyperintense hemangiomas are identified within the thoracic vertebral bodies, most significant at the T8 vertebral level. Discs/spinal canal/neural foramina: Degenerative disc bulge/osteophyte complexes are identified at multiple thoracic levels. There is no posterior disc herniation or thecal sac compression at any thoracic level. T2 hyperintense perineural cysts are visualized within the neural foramina at T1-2, left side greater than right. A small perineural cyst is seen within the right neural foramen at T2-3. There is no significant neural foraminal narrowing at the remaining thoracic neural foramina. Flow artifact is seen within the thoracic spinal canal. Spinal cord: Artifact limits evaluation of the upper thoracic spinal cord, without definitive acute cord edema when correlated with the axial views. There is a small extramedullary/intradural T2 hypointense lesion posterior to the conus medullaris measuring 0.6 x 0.4 x 0.5 cm. There is no significant progression compared to the MRI lumbar spine from 11/28/16. A differential consideration is a nerve sheath tumor, including meningioma and schwannoma. Additional etiologies cannot be excluded. Soft tissues: No significant paraspinal swelling visualized. Lungs: MRI is limited for the evaluation of the lungs. IMPRESSION: 1. There is increased kyphosis of the thoracic spine. 2. Degenerative disc bulge/osteophyte complexes are identified at multiple thoracic levels. 3. There is no posterior disc herniation or thecal sac compression at any thoracic level. 4. There is a small extramedullary/intradural lesion posterior to the conus medullaris measuring 0.6 x 0.4 x 0.5 cm. There is no significant progression compared to the MRI lumbar spine from 11/28/16. A differential consideration is a nerve sheath tumor, including meningioma and schwannoma. Additional etiologies cannot be excluded. Correlation with additional prior studies and post contrast sequences are recommended. 5. Additional findings described above.
[2017-09-13] MEDS ORDERED: Influenza Vaccine 60 mcg/0.5 mL SYR (4YR UP) IM ONE (22:49)
[2017-09-13] MEDS ORDERED: Pneumococcal 23-Valent Vaccine IM ONE (22:49)
--- NOTE | 2017-09-14 07:10 | CP.PCM.CON ---
<Nathalia Manzanares - Last Filed: 09/14/17 11:30> History of Present Illness - History of Present Illness History of Present Illness: PGY2 for Dr. 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 On Wednesday night around 3AM, patient raised from her bed about to use the bathroom and fell. Pt states that she remembered the fall and did not lose consciousness and she remember that she did urinate on her pants. She was able to move her legs but was not able to gather enough strength to get up. Her sister placed cushion to help her sit on the floor. The next day AM, EMS came, helped pt up and transferred her to the emergency room. She notes that at baseline she ambulates normally, but since the fall, she has been unable to ambulate or reservationist her left leg. ROS - Denies pain to the left leg. Denies fevers, chills, LOC, head injury, headache, dizziness, chest pain, shortness of breath, dyspnea on exertion, cough, abdominal pain, nausea, vomiting, diarrhea, back pain, neck pain, urinary/bowel changes, or any other complaint. PMH CVA in the past with left sided weakness on L lower extremity Temporal arteritis, 2013, s/p biopsy and treated with steroid HTN Unsteady gait L ankle fracture from falling on ice, cast x 1 yrs (1957) PSH Cholecystecomy 1975 FH Father at age 72 of a myocardial infarction Mother at age 85 She is #3 of 4 sibs. She has 3 brothers. One passed during WW2. The other at age 78. The other living and well. She is single and no children SH Live at home with a close friend and roomate Denied tobacco, alcohol, drug Drink coffee 2 cups a day Ambulate with a cane All NKDA Med Did not take any meds PMD: Dr Hess Outpt neurologist: Dr Davidson and Dr Mcclure Past Patient History - Infectious Disease Hx of Infectious Diseases: None - Past Social History Smoking Status: Never Smoked - CARDIAC Hx Hypertension: (pt denies htn) - NEUROLOGICAL Hx Alzheimer's Disease: Yes HX Cerebrovascular Accident: Yes (left side weakness 10/2016) - HEENT Hx HEENT Problems: Yes (eyeglasses) - MUSCULOSKELETAL/RHEUMATOLOGICAL Hx Falls: Yes (recent frequent fell 09/10/17) Hx Fractures: Yes (L ankle 1957 fell on ice, cast x1 yr) Hx Unsteady Gait: Yes (cane) Other/Comment: pt having recent frequent falls - PSYCHIATRIC Hx Substance Use: No - SURGICAL HISTORY Hx Cholecystectomy: Yes (around 50 yrs ago) - ANESTHESIA Hx Anesthesia: Yes Hx Anesthesia Reactions: No Hx Malignant Hyperthermia: No Meds Allergies/Adverse Reactions: Allergies Allergy/AdvReac Type Severity Reaction Status Date / Time No Known Allergies Allergy Verified 11/26/16 06:16 - Medications Medications: Current Medications Aspirin (Ecotrin) 81 mg PO DAILY [facility] Physical Exam - Constitutional Appears: No Acute Distress - Eye Exam Eye Exam: EOMI, Normal appearance, PERRL Pupil Exam: NORMAL ACCOMODATION - ENT Exam ENT Exam: Mucous Membranes Moist - Neck Exam Additional comments: supple - Respiratory Exam Respiratory Exam: Clear to Auscultation Bilateral, NORMAL BREATHING PATTERN. absent: Rales, Rhonchi, Wheezes - Cardiovascular Exam Cardiovascular Exam: REGULAR RHYTHM, +S1, +S2. absent: Systolic Murmur - GI/Abdominal Exam GI & Abdominal Exam: Normal Bowel Sounds, Soft. absent: Guarding, Rigid, Tenderness - Extremities Exam Extremities exam: Positive for: normal capillary refill, pedal pulses present. Negative for: calf tenderness, pedal edema - Neurological Exam Neurological exam: Oriented x3 Additional comments: Speech: fluent. Deepened nasal-labile fold on L Recall: 1/3 Motor: RUE & RLE 4/5. 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 Her Vital sign stable. CBC is significant for leukocytosis 12.7. CT head was negative for acute disease. Lumbar MRI showed (+) L4-L5 broad base disc buldges with minimal stable narrowing of the thecal sac, (+) L5-S1, broad based central left-sided disc protrusion, (+) Neural foraminal narrowing at L3- L4 and L5-S1, and (+) T2 hypointense uterin emass. 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 Continue monitor LFT. Will initiate lipitor after transaminitis improves - Physical therapy/Occupational therapy - Monitor electrolyes and correct accordingly - Recommend subacute rehab Chronic Meningioma posterior to conus medullaris - Outpatient follow up with neurology in 6 month Leukocytosis at 12.7 with granulocytosis Urinary incontinent during fall - Pending U/A, urine culture - manage per primary s/r/d/w Dr. Davidson <Rick Davidson - Last Filed: 09/14/17 15:57> Meds - Medications Medications: Current Medications Aspirin (Ecotrin) 81 mg PO DAILY [facility] Last Admin: 09/14/17 12:52 Dose: 81 mg Results - Vital Signs Recent Vital Signs: Last Vital Signs Temp 98.5 F 09/14/17 09:37 Pulse 74 09/14/17 15:24 Resp 18 09/14/17 15:24 BP 119/75 09/14/17 15:24 Pulse Ox 99 09/14/17 15:24 - Labs Result Diagrams: 09/14/17 12:00 09/14/17 12:00 Labs: Laboratory Results - last 24 hr 09/14/17 09/14/17 12:00 12:00 WBC 10.7 RBC 3.57 Hgb 10.6 L Hct 34.2 L MCV 95.8 MCH 29.7 MCHC 31.0 RDW 14.7 H Plt Count 303 MPV 10.4 Gran % 59.0 Lymph % (Auto) 33.4 [place] % (Auto) 5.7 Eos % (Auto) 1.6 Baso % (Auto) 0.3 Gran # 6.34 Lymph # 3.6 H [place] # 0.6 Eos # 0.2 Baso # 0.03 Sodium 141 Potassium 4.1 Chloride 105 Carbon Dioxide 27 Anion Gap 14 BUN 29 H Creatinine 0.9 Est GFR ( Amer) > 60 Est GFR (Non-Af Amer) 59 Random Glucose 140 H Calcium 9.1 Total Bilirubin 0.6 AST 37 H D ALT 38 Alkaline Phosphatase 68 Total Protein 7.1 Albumin 3.5 Globulin 3.6 Albumin/Globulin Ratio 1.0 L Attending/Attestation - Attestation I have personally seen and examined this patient.: Yes I have fully participated in the care of the patient.: Yes I have reviewed all pertinent clinical information: Yes
[2017-09-14 12:05] LABS: BASO # 0.03 [, K/mm3] (0.0-2.0); BASO % 0.3 % (0.0-3.0); EOS # 0.2 (0.0-0.7); EOS % 1.6 % (1.5-5.0); GRAN # 6.34 (1.4-6.5); HEMOGLOBIN 10.6 g/dL (12.0-16.0); LYMPH # 3.6 (1.2-3.4); LYMPH % 33.4 % (22.0-35.0); MEAN CELL VOLUME 95.8 fl (80.0-105.0); MEAN CORPUSCULAR HEMOGLOBIN 29.7 pg (25.0-35.0); MEAN PLATELET VOLUME 10.4 fl (7.0-11.0); MONO # 0.6 (0.1-0.6); MONO % 5.7 % (1.0-6.0); RBC 3.57 [, 10^6/uL] (3.5-6.1); RED CELL DISTRIBUTION WIDTH 14.7 % (11.5-14.5); WHITE BLOOD COUNT 10.7 [, 10^3/ul] (4.5-11.0)
[2017-09-14 12:21] LABS: ALBUMIN 3.5 g/dL (3.0-4.8); ALT/SGPT 38 U/L (7-56); AST/SGOT 37 U/L (14-36); BLOOD UREA NITROGEN 29 mg/dL (7-21); CALCIUM 9.1 mg/dL (8.4-10.5); GFR AFRICAN-AMERICAN > 60; GFR NON-AFRICAN AMERICAN 59
--- NOTE | 2017-09-14 14:58 | CARD ---
APPROVED REPORT EKG Measurement Heart [id number] <Conclusion> Sinus rhythm with premature atrial complexes Voltage criteria for left ventricular hypertrophy Nonspecific ST and T wave abnormality
[2017-09-14 18:00] LABS: URINE APPEARANCE CLEAR (CLEAR); URINE BILIRUBIN NEGATIVE (NEGATIVE); URINE BLOOD NEGATIVE (NEGATIVE); URINE COLOR YELLOW (YELLOW); URINE GLUCOSE (UA) NEGATIVE (NEGATIVE); URINE LEUKOCYTE ESTERASE NEGATIVE Leu/uL (NEGATIVE); URINE NITRATE NEGATIVE (NEGATIVE); URINE PROTEIN NEGATIVE mg/dL (<30 mg/dL); URINE UROBILINOGEN 0.2 E.U./dL (<1 E.U./dL)
--- NOTE | 2017-09-15 01:29 | PN ---
DATE: 09/14/2017 SUBJECTIVE: The patient is seen in the emergency room, still there in a holding bed, slot # 9, after coming to the emergency room yesterday with a flaccid left leg. The patient reports she fell at home, has had several falls, but this time her left leg was flacid. She was not able to move it, had no control of that leg although she says arm strength was good. There is no speech deficit. She came to the emergency room, and eventually strength returned. Multiple MRIs were done. The most significant is which the MRI of the thoracic spine, raised the question of a cyst in the T12 area which will need to be evaluated further with Neurology. PHYSICAL EXAMINATION: GENERAL: Today, the patient is awake, alert, clear and in good spirits. Moving her toes with good strength on exam. HEAD AND NECK: Otherwise, unremarkable. LUNGS: Clear. HEART: Regular, not tachycardic. EXTREMITIES: Show no edema. IMPRESSION: Possible cerebrovascular accident, transient ischemic attack with transient weakness and reported paralysis in the left leg, and now apparently resolved. PLAN: The patient moves out to the regular floor. We will ask physical therapy evaluation. Continue Neurology followup. Check on the final thoracic CT spine, thoracic MRI and continue. Venkata Hess MD MTDD
--- NOTE | 2017-09-15 07:58 | CP.PCM.PN ---
<GlennaNathalia - Last Filed: 09/15/17 07:58> Subjective - Date & Time of Evaluation Date of Evaluation: 09/15/17 Time of Evaluation: 07:57 - Subjective Subjective: Neurology PGY-[address] Davidson Pt states that LLE strength improves. She is able to lift up L leg. Denies pain or acute complaint Objective - Vital Signs/Intake and Output Vital Signs (last 24 hours): Temp Pulse Resp BP Pulse Ox 98.5 F 78 17 126/62 98 09/14/17 09:37 09/14/17 17:33 09/14/17 17:33 09/14/17 17:33 09/14/17 17:33 Intake and Output: 09/15/17 09/15/17 06:59 18:59 Intake Total 0 Balance 0 - Medications Medications: Current Medications Aspirin (Ecotrin) 81 mg PO DAILY [facility] Last Admin: 09/14/17 12:52 Dose: 81 mg - Labs Labs: 09/14/17 12:00 09/14/17 12:00 PT 12.8 SECONDS (9.4-12.5) H 09/13/17 13:00 INR 1.11 (0.93-1.08) H 09/13/17 13:00 APTT 29.7 Seconds (25.1-36.5) 09/13/17 13:00 - Constitutional Appears: No Acute Distress - Head Exam Head Exam: ATRAUMATIC, NORMAL INSPECTION, NORMOCEPHALIC - Eye Exam Eye Exam: EOMI, Normal appearance, PERRL Pupil Exam: NORMAL ACCOMODATION, PERRL - ENT Exam ENT Exam: Mucous Membranes Moist - Neck Exam Additional comments: supple - Respiratory Exam Respiratory Exam: Clear to Ausculation Bilateral, NORMAL BREATHING PATTERN. absent: Rales, Rhonchi, Wheezes - Cardiovascular Exam Cardiovascular Exam: REGULAR RHYTHM, +S1, +S2. absent: Murmur - GI/Abdominal Exam GI & Abdominal Exam: Soft, Normal Bowel Sounds. absent: Tenderness - Extremities Exam Extremities Exam: absent: Calf Tenderness, Pedal Edema - Neurological Exam Neurological Exam: Alert, Awake, Oriented x3 Additional comments: AAOx3 Speech: fluent. Deepened nasal-labile fold on L Recall: 3/3 Motor: RUE & RLE 4/5. 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 Her Vital sign stable. CBC is significant for leukocytosis 12.7. CT head was negative for acute disease. Lumbar MRI showed (+) L4-L5 broad base disc buldges with minimal stable narrowing of the thecal sac, (+) L5-S1, broad based central left-sided disc protrusion, (+) Neural foraminal narrowing at L3-L4 and L5-S1, and (+) T2 hypointense uterine mass. 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 LFT improves to 37. Will initiate lipitor - Physical therapy/Occupational therapy - Monitor electrolyes and correct accordingly - Recommend subacute rehab Chronic Meningioma posterior to conus medullaris - Outpatient follow up with neurology in 6 month Leukocytosis at 12.7 with granulocytosis - resolved, U/A negative s/r/d/w Dr. Davidson <Rick Davidson - Last Filed: 09/15/17 09:06> Objective - Vital Signs/Intake and Output Vital Signs (last 24 hours): Temp Pulse Resp BP Pulse Ox 98.5 F 78 17 126/62 98 09/14/17 09:37 09/14/17 17:33 09/14/17 17:33 09/14/17 17:33 09/14/17 17:33 Intake and Output: 09/15/17 09/15/17 06:59 18:59 Intake Total 0 Balance 0 - Medications Medications: Current Medications Aspirin (Ecotrin) 81 mg PO DAILY [facility] Last Admin: 09/14/17 12:52 Dose: 81 mg Atorvastatin Calcium (Lipitor) 20 mg PO DIN [facility]INA - Labs Labs: 09/14/17 12:00 09/14/17 12:00 PT 12.8 SECONDS (9.4-12.5) H 09/13/17 13:00 INR 1.11 (0.93-1.08) H 09/13/17 13:00 APTT 29.7 Seconds (25.1-36.5) 09/13/17 13:00 Attending/Attestation - Attestation I have personally seen and examined this patient.: Yes I have fully participated in the care of the patient.: Yes I have reviewed all pertinent clinical information, including history, physical exam and plan: Yes
[2017-09-17 21:25] VITALS: O2SAT 97
[2017-09-18 09:36] VITALS: BP 140/54; PULSE 66; RESP 18; TEMP 99
== END 2017-09-18 18:47 | DRG 57 ==
LOC: ED 11:23 → ERH 14:47 → OBSVTOIN 09-14 10:45 → ERH 09-14 17:22 → 5RNO 09-14 18:09 → 5RSO 09-17 17:09
PROVIDERS: ADMIT Internal Medicine; ATTEND Internal Medicine
DX: I69.354 Hemiplegia and hemiparesis following cerebral infarction affecting left non-dominant side (principal); G30.9 Alzheimer's disease, unspecified; I15.8 Other secondary hypertension; F02.80 Dementia in other diseases classified elsewhere, unspecified severity, without behavioral disturbance, psychotic disturbance, mood disturbance, and anxiety; D32.9 Benign neoplasm of meninges, unspecified; W19.XXXA Unspecified fall, initial encounter; D72.829 Elevated white blood cell count, unspecified; R29.6 Repeated falls; Y92.009 Unspecified place in unspecified non-institutional (private) residence as the place of occurrence of the external cause; Z82.49 Family history of ischemic heart disease and other diseases of the circulatory system; Z90.49 Acquired absence of other specified parts of digestive tract

== ENCOUNTER 2017-09-18 18:50 | Inpatient (IN) | payer OTHER, MEDICARE ==
[2017-09-19 06:57] LABS: BASO # 0.02 K/mm3 (0.0-2.0); BASO % 0.2 % (0.0-3.0); EOS # 0.2 (0.0-0.7); EOS % 2.3 % (1.5-5.0); GRAN # 5.9 (1.4-6.5); HEMOGLOBIN 9.8 g/dL (12.0-16.0); LYMPH # 2.7 (1.2-3.4); LYMPH % 28.3 % (22.0-35.0); MEAN CELL VOLUME 95.5 fl (80.0-105.0); MEAN CORPUSCULAR HEMOGLOBIN 29.5 pg (25.0-35.0); MEAN CORPUSCULAR HGB CONC 30.9 g/dl (31.0-37.0); MEAN PLATELET VOLUME 10.6 fl (7.0-11.0); MONO # 0.8 (0.1-0.6); MONO % 8.2 % (1.0-6.0); RBC 3.32 10^6/uL (3.5-6.1); RED CELL DISTRIBUTION WIDTH 14.2 % (11.5-14.5); WHITE BLOOD COUNT 9.7 10^3/ul (4.5-11.0)
[2017-09-19 07:20] LABS: ALBUMIN 3.1 g/dL (3.0-4.8); ALT/SGPT 34 U/L (7-56); AST/SGOT 28 U/L (14-36); BLOOD UREA NITROGEN 21 mg/dL (7-21); CALCIUM 8.7 mg/dL (8.4-10.5); GFR AFRICAN-AMERICAN > 60; GFR NON-AFRICAN AMERICAN 59
--- NOTE | 2017-09-21 10:37 | PN ---
DATE: 09/20/2017 DAILY PROGRESS NOTE SUBJECTIVE: The patient is an 87-year-old female, who fell at home on the way to the bathroom. Her 82-year-old sister did not help her get up, therefore put some bedding on the floor and the patient stayed there for a day or two prior to calling the ambulance and presenting to the emergency room. Her main complaint was that of left lower extremity weakness. When seen on admission, Babinski reflexes were negative. The dorsiflexion of the bilateral feet and extension of the knee was equal bilaterally; however, the patient could no raise her left leg above the bed. The patient was admitted. She was seen by Neurology. CAT scan of the head was negative and the patient slowly improved throughout the course of the hospital stay. She was admitted to [facility] on 09/13/2017 and on 09/18/2017, was transferred to the Transitional Care Unit where she is seen today. Her spheres are good. Her physical exam is essentially negative. She is well motivated and doing well as physical therapy. Strength seems to be returning to the left lower extremity. At present, I feel this was an exacerbation of her Parkinson disease as there was some cogwheeling of the lower extremities noted on physical exam on admission. So the patient continues to be followed closely. Physical therapy is encouraged. Marco Antonio Hess MD
--- NOTE | 2017-09-22 08:49 | PN ---
DATE: 09/21/2017 SUBJECTIVE: The patient was seen this Wednesday in the Transitional Care Unit, room 327, bed 1. She is sitting out of bed in a chair, enjoying lunch, awake, alert, clear and in good spirits. She is slow, but she is able to walk and move her left leg, which was the reason for her initial presentation to the acute care facility at [facility] with her leg unable to move. PHYSICAL EXAMINATION: HEENT: Head and neck are unremarkable. Conjunctivae are pink. Mucous membranes are moist. There are some signs of mild temporalis muscle wasting, typical of age. LUNGS: Show good aeration, right and left. HEART: Regular and not tachycardic. EXTREMITIES: Show no edema. I see no focal motor deficits on exam. IMPRESSION: Status post hospitalization for a left-leg weakness. PLAN: Continue physical therapy. Today is day 3 of 8. She is doing well and we will continue her physical course and look for discharge on what I believe will be Wednesday. Venkata Hess MD
--- NOTE | 2017-09-23 11:57 | PN ---
DATE: 09/22/2017 SUBJECTIVE: The patient is an 87-year-old female who fell at home on her way to the bathroom. She actually stayed on the floor for possibly 24 hours before ambulance was called, although she did receive some bedding from her 82-year-old sister to make her comfortable. Her main complaint was her left lower extremity was weak. PHYSICAL EXAMINATION: On admission, extension of the left knee and dorsiflexion was good. The hip flexion was very weak. The patient could not raise her leg above bed. Babinski reflexes were negative. There was some cogwheeling of her left lower extremity on passive motion. The patient was followed by Neurology on the medical floor. She was admitted on the 14 of September. CAT scan was negative and through the next few days of hospitalization, strength seemed to be returning to the left lower extremity. On the 09/18/2017, the patient was transferred to the Transitional Care Unit where she is doing very, very well. When seen today, she is in good spirits. She is awake, alert and oriented. She has no complaints. She walked total of 450 feet with a rolling walker and she is really pleased with herself. She will probably be discharged in the next 3 or 4 days and we will continue to encourage the patient to have physical therapy, encourage her to do well. Marco Antonio Hess MD
[2017-09-24 06:28] VITALS: RESP 18
--- NOTE | 2017-09-25 09:13 | PN ---
DATE: 09/24/2017 SUBJECTIVE: The patient was seen this Wednesday morning in room 327, bed 1, sitting out of bed in a chair, quite cheerful, and very happy that she has improved her ambulation ability so much. She is in no acute distress. PHYSICAL EXAMINATION: HEAD: Unremarkable. NECK: Unremarkable. LUNGS: Clear. HEART: Regular. EXTREMITIES: Show no edema. PLAN: Continue with physical therapy as today is day 6 of her 8-day stay on transitional care. We will follow her tomorrow and look for discharge on Wednesday. Venkata Hess MD ACE
[2017-09-25 11:56] LABS: BASO # 0.03 K/mm3 (0.0-2.0); BASO % 0.3 % (0.0-3.0); EOS # 0.2 (0.0-0.7); EOS % 2.1 % (1.5-5.0); GRAN # 6.49 (1.4-6.5); GRAN % 62.8 % (50.0-68.0); LYMPH % 28.5 % (22.0-35.0); MEAN CELL VOLUME 97.6 fl (80.0-105.0); MEAN CORPUSCULAR HEMOGLOBIN 29.7 pg (25.0-35.0); MEAN CORPUSCULAR HGB CONC 30.4 g/dl (31.0-37.0); MEAN PLATELET VOLUME 9.9 fl (7.0-11.0); MONO # 0.7 (0.1-0.6); MONO % 6.3 % (1.0-6.0); RBC 3.37 10^6/uL (3.5-6.1); RED CELL DISTRIBUTION WIDTH 14.6 % (11.5-14.5); WHITE BLOOD COUNT 10.3 10^3/ul (4.5-11.0)
[2017-09-25 12:03] LABS: ALBUMIN 3.7 g/dL (3.0-4.8); ALT/SGPT 35 U/L (7-56); AST/SGOT 28 U/L (14-36); BLOOD UREA NITROGEN 29 mg/dL (7-21); CALCIUM 9.4 mg/dL (8.4-10.5); GFR AFRICAN-AMERICAN > 60; GFR NON-AFRICAN AMERICAN 59
[2017-09-25 16:58] VITALS: BP 139/48; PULSE 63; TEMP 97.6; O2SAT 100
--- NOTE | 2017-09-26 12:59 | PN ---
DATE: 09/25/2017 SUBJECTIVE: The patient was seen this Wednesday morning in Transitional Care Unit, room 327, bed 1. She is sitting out of bed, awake, alert, clear, quite pleased with her progress in the unit. ASSESSMENT AND PLAN: She is ambulatory and doing very well. She is scheduled for discharge tomorrow. I will check her labs once more today prior to discharge. Venkata Hess MD
--- NOTE | 2017-09-27 01:31 | DS ---
HOSPITAL COURSE: This is a delightful 87-year-old woman who came to the Emergency Room because of inability to move her left leg. TIA was suspected. She was admitted to the medical floor, followed by Neurology. Workup was essentially unremarkable. Strength returned in the leg, and she came to the Transitional Care Unit for additional physical therapy and conditioning. This is a discharge summary for the patient's stay in the Transitional Care Unit. While on the Transitional Care Unit, she engaged in the activities of the unit, was ambulating in the [place] with physical therapist and did very well. Diet and appetite was good. Bowel and bladder function was normal, although later she reported some sense of urgency and incontinence. She was ambulating comfortably and looking forward to discharge to home today day number 8 of her stay on TCU. FINAL DISCHARGE DIAGNOSES: 1. Deconditioning. 2. Sciatica. 3. Suspected transient ischemic attack with left leg weakness. 4. Overactive bladder. PLAN: Discharge to home. Prescriptions were discussed with the patient at great length. She is very resistant to take any medications, even aspirin. I explained the importance of aspirin 81 mg daily, Lipitor 10 mg daily. I will also give a prescription for oxybutynin 5 mg t.i.d. for bladder spasm, overactive bladder. I will follow up the patient in the office within 1 to 2 weeks. Venkata Hess MD ACE
== END 2017-09-26 13:24 | disposition home health service (06) | DRG 945 ==
LOC: TRCU 18:50
PROVIDERS: ADMIT Internal Medicine; ATTEND Internal Medicine
PROC: F07Z9FZ Gait Training/Functional Ambulation Treatment using Assistive, Adaptive, Supportive or Protective Equipment (ICD-10-PCS; principal; 2017-09-20)
PROC: F07Z8FZ Transfer Training Treatment using Assistive, Adaptive, Supportive or Protective Equipment (ICD-10-PCS; 2017-09-20)
PROC: F07 Physical Rehabilitation and Diagnostic Audiology, Rehabilitation, Motor Treatment (ICD-10-PCS; 2017-09-20)
PROC: F08Z2ZZ Grooming/Personal Hygiene Treatment (ICD-10-PCS; 2017-09-22)
PROC: F08Z0FZ Bathing/Showering Techniques Treatment using Assistive, Adaptive, Supportive or Protective Equipment (ICD-10-PCS; 2017-09-22)
DX: R53.1 Weakness (principal); G45.9 Transient cerebral ischemic attack, unspecified; G20 Parkinson's disease; M54.30 Sciatica, unspecified side; N32.81 Overactive bladder; N32.89 Other specified disorders of bladder; M62.58 Muscle wasting and atrophy, not elsewhere classified, other site